=== PATIENT | female | born 1965 | race African-American/Black ===

== ENCOUNTER 2016-08-05 12:02 | Emergency (ER) | payer SELFPAY ==
[~2016-08-05] VITALS: Ht 157.5 cm; Wt 56.7 kg
[2016-08-05] MEDS ORDERED: Tylenol #3 tab (300mg/30mg) ORAL ONE (12:30)
[2016-08-05 12:37] VITALS: BP 162/104
[2016-08-05 13:07] LABS: APPEARANCE,URINE SLIGHTLY CLOUDY; KETONES,URINE NEGATIVE (NEGATIVE); LEUKOCYTE ESTERASE ,URINE 1+ (NEGATIVE); NITRITE,URINE NEGATIVE (NEGATIVE); PH,URINE 6.5 (4.5-8.0); PROTEIN,URINE 2+ (NEGATIVE); UROBILINOGEN,URINE NORMAL MG/DL (0.0-1.0)
[2016-08-05 13:28] LABS: BACTERIA,URINE FEW /HPF; RBC,URINE 0-2 /HPF (0 - 2); SQUAMOUS EPITHELIAL CELL,UR MODERATE /LPF (NONE/OCC)
[2016-08-05] MEDS ORDERED: IBUPROFEN600 MG ORAL (13:56)
[2016-08-05] MEDS ORDERED: METRONIDAZOLE500 MG ORAL (13:56)
[2016-08-05 14:12] VITALS: BP 170/96
--- NOTE | 2016-08-05 14:44 | Emergency Room Report ---
History of Present Illness General Chief Complaint: Pain Source: Family Member Present Illness HPI The patient is a 51-year-old female brought in by sister for possible urinary tract infection. The patient states that she has been having an increased white vaginal discharge which is foul smelling with mid lower nominal pain. Pain radiates to the right lower back. It is described as a 5/10 dull ache with no known relieving or provoking factors. She denies any other symptoms including nausea, vomiting, fever, chills, chest pain, shortness of breath, hematuria, dysuria Allergies: Coded Allergies: No Known Allergies (Unverified , 08/05/16) Patient History Past Medical History: see triage record Pertinent Family History: none Reviewed Nursing Documentation: PMH: Agreed, PSxH: Agreed Nursing Documentation-PMH Past Medical History: No History, Except For History Of Psychiatric Problem: Yes - DRUG ABUSE Hx Cerebrovascular Accident: Yes Hx Seizures: Yes Review of Systems All Other Systems: negative except mentioned in HPI Physical Exam Vital Signs Date Time Temp Pulse Resp B/P Pulse Ox O2 Delivery O2 Flow Rate FiO2 08/05/16 12:05 97.5 70 20 169/110 100 Room Air Sp02 EP Interpretation: reviewed, normal General Appearance: no apparent distress, alert, GCS 15, non-toxic Head: normocephalic, atraumatic Eyes: bilateral eye PERRL, bilateral eye normal inspection ENT: hearing grossly normal, normal pharynx, no angioedema, normal voice Respiratory: chest non-tender, lungs clear, normal breath sounds, no wheezing, speaking full sentences Cardiovascular #1: regular rate, rhythm, no edema Gastrointestinal: normal bowel sounds, non tender, soft, non-distended, no guarding, no rebound Genitourinary: normal inspection, no CVA tenderness Musculoskeletal: back normal, gait/station normal, normal range of motion, non- tender Neurologic: alert, oriented x3, responsive, motor strength/tone normal, sensory intact, normal gait, speech normal Psychiatric: judgement/insight normal, memory normal, mood/affect normal, no suicidal/homicidal ideation Skin: normal color, no rash, warm/dry, well hydrated Lymphatic: no adenopathy Medical Decision Making PA Attestation Dr. Escobar is my supervising physician. Patient management was discussed with my supervising physician Diagnostic Impression: Primary Impression: Bacterial vaginosis ER Course The patient is a 51-year-old female brought in by sister for possible urinary tract infection Differential diagnosis considered but not limited to: UTI, vaginitis, pyelonephritis, pyelonephrosis, PID PE: Vitals WNL. NAD. Abdomen: Normal appearance. Non distended. No ecchymosis. Normal BS. Non TTP. No McBurney point tenderness. No guarding. No CVA tenderness Urinalysis is unremarkable. The patient will be discharged home with a prescription for metronidazole due to symptoms. ER precautions are given Social work was consulted due to patient not having a home to return to Laboratory Tests Test 08/05/16 12:30 Urine Color Pale yellow Urine Appearance Slightly cloudy Urine pH 6.5 (4.5-8.0) Urine Specific Spencer 1.015 (1.005-1.035) Urine Protein 2+ (NEGATIVE) H Urine Glucose (UA) Negative (NEGATIVE) Urine Ketones Negative (NEGATIVE) Urine Occult Blood Negative (NEGATIVE) Urine Nitrite Negative (NEGATIVE) Urine Bilirubin Negative (NEGATIVE) Urine Urobilinogen Normal MG/DL (0.0-1.0) Urine Leukocyte Esterase 1+ (NEGATIVE) H Urine RBC 0-2 /HPF (0 - 2) Urine WBC 2-4 /HPF (0 - 2) Urine Squamous Epithelial Cells Moderate /LPF (NONE/OCC) H Urine Bacteria Few /HPF (NONE) Lab Results Impression UA unremarkable Last Vital Signs Date Time Temp Pulse Resp B/P Pulse Ox O2 Delivery O2 Flow Rate FiO2 08/05/16 14:12 84 16 170/96 99 Room Air 08/05/16 13:32 97.6 Status: improved Disposition: HOME, SELF-CARE Condition: Improved Scripts Metronidazole* (FLAGYL*) 500 Mg Tablet 500 MG ORAL Q12HR, #14 TAB 0 Refills Prov: TERZIAN,RUPAL P.A. 08/05/16 Ibuprofen* (MOTRIN*) 600 Mg Tablet 600 MG ORAL Q8H Y for For Pain, #30 TAB 0 Refills Prov: TERZIAN,RUPAL P.A. 08/05/16 Patient Instructions: Vaginitis Additional Instructions: I discussed my findings with the patient. All questions and concerns have been answered. Treatment and medication compliance have been addressed. I advised the patient that they need to follow up with PMD in 3-5 days. Return to ED if symptoms worsen, new symptoms arise, or if needed for any reason. Patient verbalized understanding of discharge instructions. RUPAL SIMMONS Aug 05, 2016 14:44
== END 2016-08-05 14:34 | disposition home or self-care (01) ==
LOC: EMR 12:45
DX: N76.0 Acute vaginitis (principal); B96.89 Other specified bacterial agents as the cause of diseases classified elsewhere; Z86.73 Personal history of transient ischemic attack (TIA), and cerebral infarction without residual deficits
CPT/HCPCS: 81003; 99284